=== PATIENT | male | born 1985 | race Asian ===

== ENCOUNTER → 2018-06-16 06:56 | Outpatient (CLI) | payer OTHER ==
[~2018-06-16 06:56] MED LIST: CELEXA20 MG PO; CLARITIN 10 MG10 MG PO; IBUPROFEN400 MG PO
[2018-08-25 20:02] VITALS: BMI 28.8
== END | disposition home or self-care (01) ==
LOC: D.CT 06-05 08:00
DX: R22.42 Localized swelling, mass and lump, left lower limb (principal)

== ENCOUNTER 2018-08-12 05:05 | Day surgery (SDC) | payer OTHER ==
[~2018-08-12] VITALS: Ht 165.1 cm; Wt 78.5 kg
--- NOTE | ~2018-08-12 | OP ---
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 PROCEDURE: Radical resection of arteriovenous malformation of the left lower extremity. SURGEON: Belkis Serna MD MICROBIOLOGY INSTRUCTOR: None. BLOOD LOSS: Minimal. ANESTHESIA: General. COMPLICATIONS: None. The risks, possible complications and alternatives to procedure were explained to the patient. He elects to proceed. The discussion specifically included, but was not limited to, bleeding requiring emergency reoperation, infection, nerve injury, motor loss and the possible need for additional operation in the future. OPERATIVE COURSE: The patient was conveyed to the operating room electively on 08/12/2018. General anesthesia was induced by the anesthesia staff. The left lower extremity was sterilely prepped and draped. I examined the left lower extremity with an Esmarch bandage. Tourniquet was inflated at the left side. An axial incision was accomplished on the medial aspect of the left leg. I dissected down to a number of very large vessels that were involved in this arteriovenous malformation, which did appear to involve the greater saphenous vein. A nerve appeared to be involved as well and I was concerned that this was a malignancy, so the nerve was sacrificed. This is likely a branch of the saphenous nerve. Some of these larger vessels were ligated and then divided between ligatures. Other vessels were ligated and divided with the Harmonic scalpel. I excised the arteriovenous malformation including the nerve. Some of these vessels were very close to skin and as I fear that this may represent a malignancy, I elected to excise a portion of the skin posteriorly to give us a better margin in case this does represent a malignancy. We then deflated the tourniquet. There was very little bleeding. Additional hemostasis was achieved with a topical hemostatic agent. The subdermis was approximated with interrupted 3-0 Vicryls. The skin was approximated with a running intracuticular 3-0 Vicryl. Dermabond was then applied. A pressure dressing was then applied. OPERATIVE REPORT [id number] MANJINDER EDEN The patient was then extubated and conveyed to post-anesthesia care unit where he was in stable condition. He will be dismissed back to the [facility]. I am going to dismiss him back with a prescription for [place]. The pressure dressing can come off in 3 days. I would like to see him in the office in 2-3 weeks to review the results of the biopsies at that time. Interestingly in the recovery room, he had full sensation involving the left foot and also had normal motor function involving the left foot as well. 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
[2018-08-12] MEDS ORDERED: CELEXA20 MG PO (08:40)
[2018-08-12] MEDS ORDERED: CLARITIN 10 MG10 MG PO (08:40)
[2018-08-12] MEDS ORDERED: IBUPROFEN400 MG PO (08:41)
[2018-08-12 08:46] VITALS: BP 122/72; Ht 165.1 cm; Wt 78.5 kg
== END 2018-08-12 18:00 ==
LOC: D.OPS 05:05 → D.SDCHOLD 05:05 → D.OPS 10:45
DX: Q27.32 Arteriovenous malformation of vessel of lower limb (principal); Z01.812 Encounter for preprocedural laboratory examination

== ENCOUNTER 2018-08-25 19:35 | Inpatient (IN) | payer MEDICAID ==
[~2018-08-25] VITALS: Ht 165.1 cm; Wt 77.6 kg
[2018-08-25 20:56] LABS: BASOPHILS 0.1 % (0-2); EOSINOPHILS 0 % (0-7); HEMATOCRIT 43.1 % (42.0-54.0); HEMOGLOBIN 14.7 g/dL (13.5-17.5); IMMATURE GRANULOCYTES 0.3 % (0-5); LYMPHOCYTES 4.8 % (15-50); MCH 28.1 pg (26.0-34.0); MCHC 34.1 g/dL (31.0-37.0); MCV 82.4 fL (80.0-100.0); MEAN PLATELET VOLUME 9.7 fL (7.4-10.4); MONOCYTES 6.7 % (2-11); NEUTROPHILS 88.1 % (40-80); PLATELET COUNT 260 10x3/uL (130-400); RBC 5.23 10x6/uL (4.20-6.10); RDW 11.9 % (11.5-14.5); WBC 19.3 10x3/uL (4.8-10.8)
[2018-08-25 20:57] LABS: ALBUMIN 3.9 g/dL (3.4-5.0); ANION GAP 10.1 mmol/L (8-16); BILIRUBIN - TOTAL 0.67 mg/dL (0.2-1.3); CALCIUM 9.3 mg/dL (8.5-10.1); CARBON DIOXIDE 29.8 mmol/L (21.0-32.0); CREATININE - SERUM 1.2 mg/dL (0.6-1.3); POTASSIUM - SERUM 3.9 mmol/L (3.5-5.1); PROTEIN - SERUM 8.7 g/dL (6.4-8.2)
[2018-08-26] VITALS (11 sets, daily range): BP systolic 98–121; BP diastolic 49–63; BMI 28.5
[2018-08-26 04:53] LABS: BASOPHILS 0.1 % (0-2); EOSINOPHILS 0 % (0-7); HEMATOCRIT 40.1 % (42.0-54.0); HEMOGLOBIN 13.7 g/dL (13.5-17.5); IMMATURE GRANULOCYTES 0.4 % (0-5); LYMPHOCYTES 6.2 % (15-50); MCHC 34.2 g/dL (31.0-37.0); MCV 81.8 fL (80.0-100.0); MEAN PLATELET VOLUME 9.4 fL (7.4-10.4); MONOCYTES 7.4 % (2-11); NEUTROPHILS 85.9 % (40-80); PLATELET COUNT 226 10x3/uL (130-400); RDW 12.1 % (11.5-14.5); WBC 19.3 10x3/uL (4.8-10.8)
[2018-08-26 05:32] LABS: ALBUMIN 3.2 g/dL (3.4-5.0); ALKALINE PHOSPHATASE 50 U/L (46-116); ALT (SGPT) 57 U/L (10-68); BILIRUBIN - TOTAL 0.95 mg/dL (0.2-1.3); CALC OSMOLALITY 269 mosm/kg (275-300); CALCIUM 8.3 mg/dL (8.5-10.1); CARBON DIOXIDE 26.5 mmol/L (21.0-32.0); CHLORIDE - SERUM 100 mmol/L (98-107); CREATININE - SERUM 1.1 mg/dL (0.6-1.3); GLUCOSE 119 mg/dL (74-106); PROTEIN - SERUM 7.4 g/dL (6.4-8.2); SODIUM 134 mmol/L (136-145); UREA NITROGEN 14 mg/dL (7-18); eGFR NON AFRICAN AMERICAN 81 mL/min (90-120)
[2018-08-27 04:00] VITALS: BP 100/51
[2018-08-27 09:20] VITALS: BP 115/48
[2018-08-27 13:01] VITALS: Ht 165.1 cm; Wt 77.6 kg
[2018-08-27 20:00] VITALS: BP 113/66
[2018-08-28 04:00] VITALS: BP 98/47
[2018-08-28 08:15] VITALS: BP 106/70
[2018-08-28] MEDS ORDERED: DOXYCYCLINE HY100 M2 PO (12:24)
[2018-08-28 13:20] VITALS: BP 107/62
== END 2018-08-28 15:54 | DRG 863 ==
LOC: D.ER 19:35 → D.MS 22:18 → D.EDHOLD 22:18 → D.MS 08-26 10:51
PROVIDERS: Family Medicine
DX: T81.4XXA Infection following a procedure, initial encounter (principal); L03.116 Cellulitis of left lower limb